=== PATIENT | female | born 1950 | race Caucasian/White ===

== ENCOUNTER 2018-05-14 14:59 | Emergency (ER) | payer MEDICARE, OTHER, SELFPAY ==
[2018-05-14 15:00] VITALS: BP 184/90; PULSE 70; RESP 12; TEMP 36.6; O2SAT 100
--- NOTE | 2018-05-14 15:39 | ED.UPPEXIN ---
HPI - Extremity Injury (Upper) General Chief Complaint: Extremity Injury, Upper Stated Complaint: LT WRIST INJURY Time Seen by Provider: 05/14/18 15:29 Source: patient Limitations: no limitations History of Present Illness HPI narrative: Patient is a 67-year-old female who presents with left wrist pain. She has an obvious deformity. She denies numbness or tingling. She is more worried about her blood pressure. She has a history of ?malignant hypertension which she is says when she was going to have surgery she required a 5 day stay in the ICU. She is worried that she may have a malignant hypertension again. She denies any chest pain any headache. She states that she took all of her blood pressure medications this morning but has not yet taken her nightly meds Related Data Previous Rx's Medication Instructions Recorded hydrocodone-acetaminophen 1 tab PO Q6H PRN #10 tab 05/14/18 ondansetron 4 mg PO Q6-8H PRN #10 tab 05/14/18 Allergies Allergy/AdvReac Type Severity Reaction Status Date / Time hydromorphone [From Dilaudid] AdvReac Severe Hallucinati Verified 05/14/18 15:43 ng Review of Systems Review of Systems All systems reviewed & are unremarkable except as noted in HPI and below Constitutional Denies chills, Denies fever(s), Denies lethargy and Denies weakness Cardiovascular Denies chest pain, Denies irregular heart rhythm, Denies lightheadedness, Denies palpitations, Denies dyspnea, Denies dyspnea on exertion and Denies orthopnea Respiratory Denies cough, Denies dyspnea, Denies dyspnea on exertion and Denies wheezing Musculoskeletal Reports system reviewed and no additional complaints, except as docu, Denies numbness and Denies tingling Integumentary/Breasts Denies pruritus, Denies erythema, Denies rash and Denies wounds Neurologic Denies numbness, Denies sensory deficit, Denies tingling, Denies paresthesias and Denies weakness Endocrine Denies palpitations Allergic/Immunologic Denies wheezing PFSH Medical History Hypertension (Acute) Social History Smoking Status: Never smoker Exam Initial Vital Signs Initial Vital Signs: Vital Signs Temperature 97.8 F 05/14/18 15:00 Pulse Rate 70 05/14/18 15:00 Respiratory Rate 12 05/14/18 15:00 Blood Pressure 184/90 H 05/14/18 15:00 Pulse Oximetry 100 05/14/18 15:00 GENERAL: [Well-appearing, well-nourished] and in [no acute] distress. HEENT: Head atraumatic,EOMI, pupils reactive, face symmetric, [moist] mucous membranes [EARS:] [Tympanic membranes visualized, no erythema or bulging, no hemotympanum] [PHARYNX:] [No erythema, no tonsillar exudate, no cervical lymphadenopathy] CARDIOVASCULAR: Regular rate and rhythm without murmurs, rubs or gallops. RESPIRATORY: Breath sounds equal bilaterally, no wheezes rales or rhonchi. ABDOMEN: Soft, nontender. Normoactive bowel sounds all 4 quadrants. No guarding or rebound. EXTREMITIES: Normal range of motion, no clubbing or edema. Neurovascularly intact NEUROLOGICAL: Alert and oriented x4.Normal gait and speech. Cranial nerves II through XII grossly intact. SKIN: Warm, dry, no laceration, no petechiae, no rashes or lesions. Extrem Left upper extremity: wrist Details: abnormal to inspection (Swelling over distal radius), tenderness Location: of the distal radius, abnormal ROM Details: pain with active ROM and pain with passive ROM and ecchymosis (Distal radius); no lacerations and no penetrating wound Procedures Orthopedic Splinting/Casting Injury #1: Upper Extremity Injury Location: wrist Upper Extremity Immobilizer: sugar tong splint Additional Comments: Splint applied by versed nurse supervised by me neurovascularly intact Course Orders Ordered: ED Orders 05/14/18 15:36 Complete Blood Count AUTO DIFF Stat Comprehensive Metabolic Panel Stat Lipase Stat Troponin & CK Cardiac Panel Stat 05/14/18 15:40 XR wrist LT min 3V Stat 05/14/18 15:41 EKG-12 Lead Stat Discontinued Medications Acetaminophen (Tylenol) 650 mg PO NOW ONE Stop: 05/14/18 16:13 Last Admin: 05/14/18 16:41 Dose: 650 mg Morphine Sulfate (Morphine) 4 mg IV NOW ONE Stop: 05/14/18 15:41 Last Admin: 05/14/18 15:43 Dose: 4 mg Vital Signs - 8 hr 05/14/18 15:00 05/14/18 15:51 05/14/18 18:07 Temperature 97.8 F Pulse Rate 70 71 84 Pulse Rate [Left Radial] 70 Respiratory Rate 12 14 16 Blood Pressure 184/90 H Blood Pressure [Right Arm] 179/91 H 171/60 H Pulse Oximetry 100 99 100 MDM - Extremity Injury (Upper) Lab Data Attestation: I reviewed the patient's lab results. Result diagrams: 05/14/18 15:36 05/14/18 15:36 Lab Results 05/14/18 05/14/18 Range/Units 15:36 15:36 WBC 6.9 (4.5-11.0) X10^3/uL RBC 4.24 (4.0-5.2) X10^6/uL Hgb 13.6 (12.0-16.0) g/dL Hct 40.3 (36-46) % MCV 95.1 (80-100) fL MCH 32.1 (26-34) PG MCHC 33.7 (30-36) % RDW 13.0 (11.6-14.8) % Plt Count 207 (150-400) X10^3/uL Neut % (Auto) 57.5 (50-75) % Lymph % (Auto) 31.8 (25-40) % [place] % (Auto) 7.7 (3-14) % Eos % (Auto) 1.9 L (2-4) % Baso % (Auto) 1.1 (0-2) % Neut # (Auto) 4000 (9268-0147) /uL Sodium 141 (137-145) mmol/L Potassium 4.0 (3.4-5.1) mmol/L Chloride 103 (98-107) mmol/L Carbon Dioxide 30 (22-32) mmol/L BUN 30 H (7-17) mg/dL Creatinine 1.00 (0.52-1.04) mg/dL Estimated GFR 55.3 L (>60) mL/min BUN/Creatinine Ratio 30.0 H (6-22) Glucose 127 H (80-110) mg/dL Calcium 9.4 (8.4-10.2) mg/dL Total Bilirubin 0.3 (0.2-1.3) mg/dL AST 27 (14-36) IU/L ALT 25 (9-52) IU/L Alkaline Phosphatase 73 (38-126) U/L Total Creatine Kinase 78 (30-135) U/L Troponin I < 0.012 (0.01-0.034) ng/mL Total Protein 7.2 (6.3-8.2) g/dL Albumin 4.1 (3.5-5.0) g/dL Globulin 3.1 (1.7-4.1) g/dL Albumin/Globulin Ratio 1.3 (1.0-2.8) Lipase 146 (23-300) U/L Imaging Data XR left wrist: Radiologist's impression: PROCEDURE: XR WRIST LT MIN 3V INDICATIONS: fall injury TECHNIQUE: 3 views of the wrist were acquired. COMPARISON: None. FINDINGS: Bones: There is comminuted radial metaphyseal fracture with probable intra-articular involvement. Possible old second metacarpal base fracture. Osteopenia. No suspicious bony lesions. Moderate degenerative joint disease at the triscaphe joint and first carpal metacarpal joint. Soft tissues: No suspicious soft tissue calcifications. IMPRESSION: 1. Comminuted radial metaphyseal fracture with probable intra-articular involvement. 2. Suspect old second metacarpal base fracture. 3. Diffuse osteopenia. 4. Degenerative joint disease. Dictated by: Tia Sandhu M.D. on 05/14/2018 at 16:03 ECG Data Attestation: I personally reviewed and interpreted this ECG as follows: Interpretation: Normal sinus rhythm rate [address] changes normal interval MDM Narrative Medical decision making narrative: Long discussion with patient about of hypertensive emergency and hypertensive urgency. At this time she has no sign of end-organ damage. I recommend that she go home and take her blood pressure medications. She is also given pain medications as well. Patient overall is feeling better. She is placed in a splint and recommended follow-up with Orthopedics. Discharge Plan Departure Patient Disposition: Home, Self-Care Clinical Impression: Fracture of wrist, Hypertension Discharge Date/Time: 05/14/18 18:09 Interventions: ED Discharge Assessment Last Done: 05/14/18 18:08 Instructions: DI for Wrist Fracture Activity Restrictions/Additional Instructions: *You have been diagnosed with left wrist fracture *What to do: The keep wrist in a splint at all times, elevate, may ice through the splint 20 min at a time *Continue to take medications as directed -[place] 1 tablet every 6 hr if needed for severe pain -Zofran 1 every 6 hours if needed for nausea or vomiting. If pain medicatiosn make you nausous, take 30 minutes before pain medication is due *Follow up with your primary care provider in 2-3 days, call up [facility] tomorrow to schedule follow-up appointment in 1-2 week *Return to ER if you should have numbness, tingling or any new, worsening or concerning symptoms Prescriptions: New hydrocodone-acetaminophen 5-325 mg tablet 1 tab PO Q6H PRN (Reason: pain) Qty: 10 RF: 0 ondansetron 4 mg tablet,disintegrating 4 mg PO Q6-8H PRN (Reason: nausea and vomiting) Qty: 10 RF: 0 Referrals: [facility] [Provider Group]
[2018-05-14] MEDS: MORPHINE 4 MG/ML INJ IV (15:43)
[2018-05-14 15:47] LABS: Add Manual Diff / Slide Review NO; Basophils Percent Auto 1.1 % (0-2); Eosinophils Percent Auto 1.9 % (2-4); Hematocrit 40.3 % (36-46); Hemoglobin 13.6 g/dL (12.0-16.0); Lymphocytes Percent Auto 31.8 % (25-40); Mean Corpuscular HGB Conc 33.7 % (30-36); Mean Corpuscular Hemoglobin 32.1 PG (26-34); Mean Corpuscular Volume 95.1 fL (80-100); Monocytes Percent Auto 7.7 % (3-14); Neutrophils Absolute Auto 4000 /uL (3000-5900); Neutrophils Percent Auto 57.5 % (50-75); Platelet Count 207 X10^3/uL (150-400); Red Blood Cell Count 4.24 X10^6/uL (4.0-5.2); White Blood Cell Count 6.9 X10^3/uL (4.5-11.0)
[2018-05-14 15:51] VITALS: BP 179/91; PULSE 70; PULSE 71; RESP 14; O2SAT 99
[2018-05-14 16:02] LABS: Alanine Aminotransferase 25 IU/L (9-52); Albumin 4.1 g/dL (3.5-5.0); Albumin Globulin Ratio 1.3 (1.0-2.8); Alkaline Phosphatase 73 U/L (38-126); Aspartate Aminotransferase 27 IU/L (14-36); Bilirubin Total 0.3 mg/dL (0.2-1.3); Blood Urea Nitrogen 30 mg/dL (7-17); Calcium 9.4 mg/dL (8.4-10.2); Carbon Dioxide 30 mmol/L (22-32); Chloride 103 mmol/L (98-107); Creatine Kinase 78 U/L (30-135); Estimated Glomerular Filt Rate 55.3 mL/min (>60); Globulin 3.1 g/dL (1.7-4.1); Glucose 127 mg/dL (80-110); HEMOLYSIS 19 (0-50); Lipase 146 U/L (23-300); Sodium 141 mmol/L (137-145); Total Protein 7.2 g/dL (6.3-8.2)
[2018-05-14 16:14] LABS: Troponin I < 0.012 ng/mL (0.01-0.034)
[2018-05-14] MEDS: ACETAMINOPHEN 325 MG TABLET 650 MG PO (16:41)
[2018-05-14 18:07] VITALS: BP 171/60; PULSE 84; RESP 16; O2SAT 100
== END 2018-05-14 18:09 | disposition home or self-care (01) ==
PROVIDERS: Emergency Provider Emergency Medicine
DX: S62.109A Fracture of unspecified carpal bone, unspecified wrist, initial encounter for closed fracture (principal); I10 Essential (primary) hypertension
CPT/HCPCS: 29125; 36591; 73110; 80053; 82550; 82553; 83690; 84484; 85025; 93005; 96374; 99283; 99285; J2270